=== PATIENT | male | born 1995 | race African-American/Black ===

== ENCOUNTER 2021-04-26 12:34 | Outpatient (CLI) | payer OTHER | END 2021-04-26 12:35 | disposition home or self-care (01) | LOC: DTY/OP 12:34 | PROVIDERS: ATTEND Family Medicine | DX: E66.01 Morbid (severe) obesity due to excess calories (principal); Z68.42 Body mass index [BMI] 45.0-49.9, adult | CPT/HCPCS: 97802 ==